=== PATIENT | female | born 2000 | race Hispanic/Latino ===

== ENCOUNTER 2023-06-09 12:43 | Day surgery (SDC) | payer BC, MEDICAID, OTHER | END 2023-06-09 13:55 | disposition home or self-care (01) | LOC: CSHLD/OP 12:43 | PROVIDERS: ATTEND Student in an Organized Health Care Education/Training Program | DX: O99.891 Other specified diseases and conditions complicating pregnancy (principal); R10.2 Pelvic and perineal pain; Z3A.32 32 weeks gestation of pregnancy | CPT/HCPCS: 99282 ==

== ENCOUNTER 2023-07-22 07:11 | Inpatient (IN) | payer OTHER ==
[2023-07-22 07:39] VITALS: BMI 38.2
[2023-07-22] MEDS ORDERED: Ondansetron PF 4 MG/2 ML Vial IVP PRN ×3 (07:50→11:22)
[2023-07-22] MEDS ORDERED: Lidocaine 1% (PF) 30 ML VIAL SC PRN (07:50)
[2023-07-22] MEDS ORDERED: Diphenoxylate HCl/Atropine Tablet PO PRN (07:50)
[2023-07-22] MEDS ORDERED: Carboprost 250 MCG/ML AMP IM PRN (07:50)
[2023-07-22] MEDS ORDERED: fentaNYL 50 mcg/mL 1 mL Vial SLOW IVP PRN (07:50)
[2023-07-22] MEDS ORDERED: Acetaminophen 500 MG TAB PO PRN (07:50)
[2023-07-22] MEDS ORDERED: Methylergonovine 0.2 MG/ML VIAL IM PRN (07:50)
[2023-07-22] MEDS ORDERED: Promethazine HCl 25 MG/ML VIAL IM PRN ×2 (07:50→11:17)
[2023-07-22] MEDS ORDERED: Misoprostol 200 MCG TAB PR PRN (07:50)
[2023-07-22] MEDS ORDERED: HYDROcodone/Acetaminophen 5/325 mg Tablet PO PRN ×3 (07:50→22:00)
[2023-07-22] MEDS ORDERED: Ibuprofen 800 MG TAB PO PRN (07:50)
[2023-07-22] MEDS ORDERED: hydrALAZINE 20 MG/ML VIAL SLOW IVP PRN ×2 (07:50→11:22)
[2023-07-22] MEDS ORDERED: Lactated Ringer's 1,000 ML IV SCH (08:00)
[2023-07-22] MEDS ORDERED: Oxytocin 30 units/NS 500 ML 500 ML IV SCH ×2 (08:00)
[2023-07-22 08:12] LABS: Hematocrit 39.2 % (34.9-44.5); Hemoglobin 13.8 g/dL (12.0-15.5); Mean Corpuscular HGB CONC 35.2 g/dL (32.0-36.0); Mean Corpuscular Hemoglobin 30.5 pg (27.0-33.0); Mean Corpuscular Volume 86.5 fl (81.6-98.3); Mean Platelet Volume 9.8 fl (7.4-10.4); Platelet Count 443 10x3/uL (150-450); RBC Distribution Width 12.9 % (11.5-14.5); Red Blood Cell (RBC) Count 4.53 10x6/uL (3.90-5.03); White Blood Cell (WBC) Count 13.9 10x3/uL (3.5-10.5)
[2023-07-22] MEDS ORDERED: fentaNYL/Ropivacaine Epidural 100 ML ONE (08:17)
[2023-07-22 08:46] LABS: Hep B Surf Ag - L&D Non-Reactive S/CO (NonReactive)
[2023-07-22 08:48] LABS: Syphilis Antibody Nonreactive (Nonreactive); Syphilis Antibody Index 0.11 S/CO (<1.00 Non-Reactive)
[2023-07-22 10:51] LABS: RapidComm Collect By CBN
[2023-07-22 10:53] LABS: RapidComm Collect By CBN; pH (Cord, venous) 7.396 (7.250-7.350)
[2023-07-22] MEDS ORDERED: Acetaminophen 325 MG TAB PO PRN (11:17)
[2023-07-22] MEDS ORDERED: diphenhydrAMINE 50 MG/ML VIAL IVP PRN (11:17)
[2023-07-22] MEDS ORDERED: Lactated Ringer's 500 ML IV PRN (11:17)
[2023-07-22] MEDS ORDERED: Moisturizing Cream (Eucerin) 113 GM JAR TOP PRN (11:17)
[2023-07-22] MEDS ORDERED: ePHEDrine Sulfate 50 MG/10 ML VIAL SLOW IVP PRN (11:17)
[2023-07-22] MEDS ORDERED: Naloxone HCl 0.4 mg/ml Vial IVP PRN ×2 (11:17)
[2023-07-22] MEDS ORDERED: Milk Of Magnesia 30 ML UDCUP PO PRN (11:22)
[2023-07-22] MEDS ORDERED: Lanolin Ointment 7 GM TUBE TOP PRN (11:22)
[2023-07-22] MEDS ORDERED: Boostrix 0.5 ML (Tdap) VIAL (>/=7 yrs of age) IM ONE (11:22)
[2023-07-22] MEDS ORDERED: Preparation H Ointment 28 GM TUBE PR PRN (11:22)
[2023-07-22] MEDS ORDERED: diphenhydrAMINE 25 MG CAP PO PRN (11:22)
[2023-07-22] MEDS ORDERED: Bisacodyl 10 MG SUPP PR PRN (11:22)
[2023-07-22] MEDS ORDERED: Benzocaine-Menthol 82.5 ML CAN TOP PRN (11:22)
[2023-07-22] MEDS ORDERED: Communication Order-Pharmacy FS SCH (11:30)
[2023-07-22] MEDS ORDERED: fentaNYL 2 mcg/Ropivacaine 0.2% Epidural 100 ML CADD EPIDURAL SCH (11:30)
[2023-07-22] MEDS ORDERED: Bupivacaine 0.25% HCL 30 ML VIAL ONE (13:00)
[2023-07-22] MEDS: Ibuprofen 800 MG TAB PO SCH ×2 (14:28→22:03)
[2023-07-22] MEDS: Ferrous Sulfate 325 MG TAB PO SCH (17:18)
[2023-07-22] MEDS: Docusate 100 MG CAP PO SCH (22:03)
[2023-07-23] MEDS: Ibuprofen 800 MG TAB PO SCH ×2 (05:40→13:38)
[2023-07-23] MEDS: Ferrous Sulfate 325 MG TAB PO SCH (07:05)
[2023-07-23 07:44] VITALS: BP 133/84; TEMP 97.7
[2023-07-23] MEDS ORDERED: Prenatal Vitamin 1 TAB PO SCH (09:00)
[2023-07-23] MEDS: Docusate 100 MG CAP PO SCH (09:43)
== END 2023-07-23 14:30 | disposition home or self-care (01) | DRG 807 ==
LOC: CSHLD/OP 07:11 → CSHLD 08:46 → CSHPP 12:46
PROVIDERS: ADMIT Student in an Organized Health Care Education/Training Program; ATTEND Student in an Organized Health Care Education/Training Program
PROC: 10E0XZZ Delivery of Products of Conception, External Approach (ICD-10-PCS; principal; 2023-07-22)
DX: O69.81X0 Labor and delivery complicated by cord around neck, without compression, not applicable or unspecified (principal); Z37.0 Single live birth; Z3A.38 38 weeks gestation of pregnancy; O66.0 Obstructed labor due to shoulder dystocia; Z67.40 Type O blood, Rh positive
CPT/HCPCS: 51702; 82805; 85027; 86780; 86850; 86900; 86901; 87340; 99285; J2001; J2590; S0020

== ENCOUNTER 2023-07-27 11:28 | Inpatient (IN) | payer OTHER ==
[2023-07-27 12:21] LABS: #Eosinphils 0.1 10x3/uL (0.0-0.5); #Monocytes 0.4 10x3/uL (0.0-1.1); %Basophils 0.3 % (0.0-2.0); %Eosinophils 0.8 % (0.0-6.0); %Lymphocytes 19.8 % (18.0-47.0); %Monocytes 4.1 % (0.0-10.0); %Neutrophils 74.7 % (40.0-75.0); Hematocrit 43.8 % (34.9-44.5); Hemoglobin 14.5 g/dL (12.0-15.5); Mean Corpuscular HGB CONC 33.1 g/dL (32.0-36.0); Mean Corpuscular Hemoglobin 29.3 pg (27.0-33.0); Mean Corpuscular Volume 88.5 fl (81.6-98.3); Mean Platelet Volume 8.8 fl (7.4-10.4); Platelet Count 551 10x3/uL (150-450); RBC Distribution Width 13.1 % (11.5-14.5); Red Blood Cell (RBC) Count 4.95 10x6/uL (3.90-5.03); White Blood Cell (WBC) Count 9.3 10x3/uL (3.5-10.5)
[2023-07-27] MEDS ORDERED: hydrALAZINE 20 MG/ML VIAL ONE (12:21)
[2023-07-27 12:30] LABS: ALT (SGPT) 38 U/L (8-55); AST (SGOT) 55 U/L (5-34); Albumin 3.8 g/dL (3.5-5.0); Alkaline Phosphatase 133 U/L (40-110); Anion Gap 14 mmol/L (10-20); BUN (Urea Nitrogen) 4 mg/dL (7.0-18.7); Bilirubin, Total 1.6 mg/dL (0.2-1.2); Calc. Creatinine Clearance 0 mL/min (70-130); Calcium 9.5 mg/dL (7.8-10.44); Carbon Dioxide 24 mmol/L (22-29); Chloride 107 mmol/L (98-107); Estimated GFR 129; Globulin 3.6 g/dL (2.4-3.5); Glucose 82 mg/dL (70-105); Magnesium 1.8 mg/dL (1.6-2.6); Potassium 4.3 mmol/L (3.5-5.1); Protein, Total 7.4 g/dL (6.0-8.3); Sodium 141 mmol/L (136-145)
[2023-07-27] MEDS ORDERED: Promethazine HCl 25 MG/ML VIAL IM PRN ×2 (12:49→13:02)
[2023-07-27] MEDS ORDERED: Labetalol HCl 100 MG/20 ML VIAL SLOW IVP PRN ×2 (12:49→13:02)
[2023-07-27] MEDS ORDERED: Lorazepam 2 MG/ML VIAL SLOW IVP PRN ×2 (12:49→13:02)
[2023-07-27] MEDS ORDERED: hydrALAZINE 20 MG/ML VIAL SLOW IVP PRN (12:49)
[2023-07-27] MEDS ORDERED: Calcium Gluc 4.6 MEQ/10 ML (100 MG/ML) SLOW IVP PRN ×2 (12:49→13:02)
[2023-07-27] MEDS ORDERED: NIFEdipine 10 MG CAP PO PRN ×4 (12:49→13:02)
[2023-07-27] MEDS ORDERED: Ondansetron PF 4 MG/2 ML Vial IVP PRN ×2 (12:49→13:02)
[2023-07-27] MEDS ORDERED: Magnesium Sulfate 20 gm/500 ml 20 GM/500 ML BAG ONE (12:58)
[2023-07-27] MEDS ORDERED: Magnesium Sulfate 20 gm/500 ml 20 GM/500 ML BAG IVPB SCH (13:00)
[2023-07-27] MEDS ORDERED: NIFEdipine XL 30 MG ER.TAB PO SCH ×2 (13:00→15:00)
[2023-07-27 13:03] LABS: Lipase Less than 4 U/L (8-78)
[2023-07-27] MEDS: Magnesium Sulfate 20 gm/500 ml 20 GM/500 ML BAG IVPB SCH ×2 (13:10→21:35)
[2023-07-27] MEDS ORDERED: Ibuprofen 800 MG TAB PO PRN (14:43)
[2023-07-27] MEDS ORDERED: Acetaminophen 500 MG TAB PO SCH (14:45)
[2023-07-27 15:11] LABS: Creatinine, Urine 32.84 mg/dL (47-110); Protein, Urine Random Quant Less than 10 mg/dL (1-14)
[2023-07-27 16:29] LABS: Troponin I 0.034 ng/mL (< 0.028)
[2023-07-27 20:15] LABS: Troponin I 0.021 ng/mL (< 0.028)
[2023-07-27] MEDS ORDERED: Acetaminophen 500 MG TAB PO PRN (22:00)
[2023-07-28] MEDS ORDERED: Fioricet 325/50/40 mg Tablet PO SCH ×2 (09:00→12:00)
[2023-07-28] MEDS ORDERED: NIFEdipine XL 30 MG ER.TAB PO SCH (09:00)
[2023-07-28] MEDS: Ibuprofen 600 MG TAB PO PRN ×3 (09:33→22:52)
[2023-07-28] MEDS: NIFEdipine XL 30 MG ER.TAB PO SCH (09:33)
[2023-07-28 09:39] LABS: #Eosinphils 0.1 10x3/uL (0.0-0.5); #Monocytes 0.6 10x3/uL (0.0-1.1); #Neutrophils 10.2 10x3/uL (1.5-8.4); %Basophils 0.2 % (0.0-2.0); %Eosinophils 0.6 % (0.0-6.0); %Monocytes 4.7 % (0.0-10.0); Hematocrit 44.6 % (34.9-44.5); Hemoglobin 15.2 g/dL (12.0-15.5); Mean Corpuscular HGB CONC 34.1 g/dL (32.0-36.0); Mean Corpuscular Hemoglobin 30.3 pg (27.0-33.0); Mean Corpuscular Volume 88.8 fl (81.6-98.3); Mean Platelet Volume 8.9 fl (7.4-10.4); Platelet Count 586 10x3/uL (150-450); Red Blood Cell (RBC) Count 5.02 10x6/uL (3.90-5.03); White Blood Cell (WBC) Count 12.6 10x3/uL (3.5-10.5)
[2023-07-28 10:02] LABS: ALT (SGPT) 34 U/L (8-55); AST (SGOT) 46 U/L (5-34); Albumin 3.7 g/dL (3.5-5.0); Alkaline Phosphatase 142 U/L (40-110); Anion Gap 14 mmol/L (10-20); BUN (Urea Nitrogen) Less than 4 mg/dL (7.0-18.7); Bilirubin, Total 1.6 mg/dL (0.2-1.2); Calc. Creatinine Clearance 0 mL/min (70-130); Calcium 7.7 mg/dL (7.8-10.44); Carbon Dioxide 24 mmol/L (22-29); Chloride 101 mmol/L (98-107); Estimated GFR 130; Globulin 3.4 g/dL (2.4-3.5); Glucose 106 mg/dL (70-105); Potassium 3.3 mmol/L (3.5-5.1); Protein, Total 7.1 g/dL (6.0-8.3); Sodium 136 mmol/L (136-145)
[2023-07-28] MEDS ORDERED: Potassium Chloride 20 MEQ TAB PO SCH (11:00)
[2023-07-28] MEDS ORDERED: Bisacodyl 10 MG SUPP PR PRN (15:10)
[2023-07-28] MEDS ORDERED: hydrALAZINE 20 MG/ML VIAL SLOW IVP PRN (15:10)
[2023-07-28] MEDS ORDERED: Boostrix 0.5 ML (Tdap) VIAL (>/=7 yrs of age) IM ONE (15:10)
[2023-07-28] MEDS ORDERED: Lanolin Ointment 7 GM TUBE TOP PRN (15:10)
[2023-07-28] MEDS ORDERED: diphenhydrAMINE 25 MG CAP PO PRN (15:10)
[2023-07-28] MEDS ORDERED: Preparation H Ointment 28 GM TUBE PR PRN (15:10)
[2023-07-28] MEDS ORDERED: Milk Of Magnesia 30 ML UDCUP PO PRN (15:10)
[2023-07-28] MEDS: Ferrous Sulfate 325 MG TAB PO SCH (15:59)
[2023-07-28] MEDS: Fioricet 325/50/40 mg Tablet PO PRN ×2 (16:00→22:52)
[2023-07-28] MEDS: Docusate 100 MG CAP PO SCH (21:33)
[2023-07-29 04:43] VITALS: TEMP 98.7
[2023-07-29] MEDS: Ferrous Sulfate 325 MG TAB PO SCH (07:52)
[2023-07-29 08:00] VITALS: BP 144/85
[2023-07-29] MEDS: Docusate 100 MG CAP PO SCH (08:30)
[2023-07-29] MEDS: NIFEdipine XL 30 MG ER.TAB PO SCH (08:30)
[2023-07-29] MEDS: Fioricet 325/50/40 mg Tablet PO PRN (08:35)
[2023-07-29] MEDS: Ibuprofen 600 MG TAB PO PRN (08:35)
[2023-07-29] MEDS ORDERED: Prenatal Vitamin 1 TAB PO SCH (09:00)
== END 2023-07-29 10:00 | disposition home or self-care (01) | DRG 776 ==
LOC: CSHERS 11:28 → CSHLD 13:02 → CSHPP 07-28 15:37
PROVIDERS: ADMIT Student in an Organized Health Care Education/Training Program; ATTEND Student in an Organized Health Care Education/Training Program
DX: O14.95 Unspecified pre-eclampsia, complicating the puerperium (principal); Z79.899 Other long term (current) drug therapy; Z98.890 Other specified postprocedural states
CPT/HCPCS: 36415; 80053; 82570; 83690; 83735; 84156; 84484; 85025; 93005; 93010; 96374; J0360; J3475